=== PATIENT | female | born 1970 | race African-American/Black ===

== ENCOUNTER 2018-10-13 19:08 | Emergency (ER) | payer SELFPAY ==
[~2018-10-13] VITALS: Ht 154.9 cm; Wt 137.0 kg
[2018-10-13 19:35] VITALS: BP 137/84
[2018-10-13] MEDS ORDERED: ALBUTEROL (0.083%) 2.5MG/3ML NEB HHN STA (19:39)
== END 2018-10-13 21:32 | disposition home or self-care (01) ==
LOC: ER 19:08
DX: J45.909 Unspecified asthma, uncomplicated (principal); I10 Essential (primary) hypertension; E66.9 Obesity, unspecified; Z68.43 Body mass index [BMI] 50.0-59.9, adult; Z76.5 Malingerer [conscious simulation]; Z98.51 Tubal ligation status
CPT/HCPCS: 99283